=== PATIENT | male | born 1990 | race Caucasian/White ===

== ENCOUNTER 2017-05-06 18:25 | Emergency (ER) | payer SELFPAY ==
[2017-05-06] MEDS ORDERED: HYDROcodone/Acetaminophen 10/325 mg Tablet ONE (19:27)
[2017-05-06] MEDS ORDERED: Cephalexin 500 MG CAP ONE (19:28)
[2017-05-06] MEDS ORDERED: Naproxen 500 MG TAB ONE (19:28)
[2017-05-06] MEDS ORDERED: Triple Antibiotic Oint 1 GM Packet ONE (19:28)
== END 2017-05-06 19:35 | disposition home or self-care (01) ==
LOC: MADERS 18:25
DX: T23.131A Burn of first degree of multiple right fingers (nail), not including thumb, initial encounter (principal); F31.9 Bipolar disorder, unspecified; Z79.899 Other long term (current) drug therapy; X08.8XXA Exposure to other specified smoke, fire and flames, initial encounter
CPT/HCPCS: 99283

== ENCOUNTER 2022-05-27 14:52 | Emergency (ER) | payer OTHER | END 2022-05-27 17:20 | disposition home or self-care (01) | LOC: MADERS 14:52 | DX: S20.212A Contusion of left front wall of thorax, initial encounter (principal); K21.9 Gastro-esophageal reflux disease without esophagitis; G47.30 Sleep apnea, unspecified; F17.220 Nicotine dependence, chewing tobacco, uncomplicated; W18.09XA Striking against other object with subsequent fall, initial encounter; Y93.01 Activity, walking, marching and hiking ==